=== PATIENT | female | born 1980 | race Caucasian/White ===

== ENCOUNTER 2022-04-17 14:14 | Emergency (ER) | payer OTHER ==
[~2022-04-17] VITALS: Ht 165.1 cm; Wt 133.8 kg
[2022-04-17 14:34] VITALS: BP 118/71
[2022-04-17] MEDS ORDERED: CEPH-588 PO (15:38)
[2022-04-17 16:10] VITALS: BP 118/71
--- NOTE | 2022-04-17 16:10 | NUR ---
Patient discharged with v/s stable. Written and verbal after care instructions given and explained. Patient alert, oriented and verbalized understanding of instructions. Ambulatory with steady gait. All questions addressed prior to discharge. ID band removed. Patient advised to follow up with PMD. Rx of keflex (sent) given. Patient educated on indication of medication including possible reaction and side effects. Opportunity to ask questions provided and answered. copy of work note given
== END 2022-04-17 16:10 | disposition home or self-care (01) ==
LOC: MED 14:14
DX: L98.8 Other specified disorders of the skin and subcutaneous tissue (principal); H92.02 Otalgia, left ear; Z79.2 Long term (current) use of antibiotics
CPT/HCPCS: 99283

== ENCOUNTER 2022-06-20 17:10 | Emergency (ER) | payer OTHER ==
[~2022-06-20] VITALS: Ht 165.1 cm; Wt 131.1 kg
[~2022-06-20 17:10] MED LIST: CEPH-588 PO
[2022-06-20 17:15] VITALS: BP 129/73
--- NOTE | 2022-06-20 17:15 | NUR ---
PT SENT TO LOBBY AT THIS TIME POST TRIAGE
[2022-06-20] MEDS ORDERED: IBUP-2213 PO (17:41)
[2022-06-20] MEDS ORDERED: CIPR7.5S OT (17:41)
[2022-06-20 17:55] VITALS: BP 129/73
--- NOTE | 2022-06-20 17:56 | NUR ---
Patient discharged with v/s stable. Written and verbal after care instructions given and explained. Patient alert, oriented and verbalized understanding of instructions. Ambulatory with steady gait. All questions addressed prior to discharge. ID band removed. Patient advised to follow up with PMD. Rx of IBUPROFEN, CIPROFLOXACIN (SENT) given. Patient educated on indication of medication including possible reaction and side effects. Opportunity to ask questions provided and answered.
== END 2022-06-20 17:56 | disposition home or self-care (01) ==
LOC: MED 17:10
DX: H60.92 Unspecified otitis externa, left ear (principal); J45.909 Unspecified asthma, uncomplicated; Z79.899 Other long term (current) drug therapy
CPT/HCPCS: 99283

== ENCOUNTER 2022-11-23 16:40 | Emergency (ER) | payer OTHER ==
[~2022-11-23] VITALS: Ht 162.6 cm; Wt 127.0 kg
[~2022-11-23 16:40] MED LIST changes: +CIPR7.5S OT; +IBUP-2213 PO
[2022-11-23 17:20] VITALS: BP 113/89; PULSE 112; RESP 16; TEMP 100.3; O2SAT 100
[2022-11-23] MEDS ORDERED: PHEN-1877 PO (17:53)
[2022-11-23] MEDS ORDERED: NITR100C7 PO (17:53)
== END 2022-11-23 17:56 | disposition home or self-care (01) ==
LOC: MED 16:40
DX: N39.0 Urinary tract infection, site not specified (principal); J45.909 Unspecified asthma, uncomplicated; Z98.890 Other specified postprocedural states; Z79.899 Other long term (current) drug therapy
CPT/HCPCS: 99283

== ENCOUNTER 2022-12-18 14:25 | Emergency (ER) | payer OTHER ==
[~2022-12-18 14:25] MED LIST changes: +NITR100C7 PO; +PHEN-1877 PO
== END 2022-12-18 14:56 | disposition left against medical advice (07) ==
LOC: MED 14:25
DX: Z53.21 Procedure and treatment not carried out due to patient leaving prior to being seen by health care provider (principal)

== ENCOUNTER 2023-02-16 18:23 | Emergency (ER) | payer OTHER ==
[~2023-02-16] VITALS: Ht 160 cm; Wt 119.3 kg
[2023-02-16 18:48] VITALS: BP 120/70; PULSE 97; RESP 18; TEMP 98.8; O2SAT 100
[2023-02-16 19:36] LABS: BILIRUBIN,URINE 1+ (NEGATIVE); BLOOD, URINE NEGATIVE (NEGATIVE); LEUKOCYTE ESTERASE ,URINE TRACE (NEGATIVE); NITRITE, URINE POSITIVE (NEGATIVE); PROTEIN,URINE 1+ (NEGATIVE); UGLUCOSE NEGATIVE (NEGATIVE); UROBILINOGEN,URINE 0.2 EU/dL (0.2 - 1)
[2023-02-16 19:46] LABS: APPEARANCE,URINE HAZY (CLEAR); COLOR,URINE YELLOW (YELLOW)
[2023-02-16 19:58] LABS: BACTERIA,URINE 2+ /HPF (None Seen); RBC,URINE NONE SEEN /HPF (0-5); SQUAMOUS EPITHELIAL CELL,UR 4-10 (MOD) /LPF (0-3 (FEW)); WBC,URINE 20-60 /HPF (0-5)
[2023-02-16] MEDS ORDERED: CIPR500T4 PO (20:15)
[2023-02-16] MEDS ORDERED: PHEN-1877 PO (20:15)
[2023-02-16 20:25] VITALS: BP 120/70; PULSE 97; RESP 18; TEMP 98.8; O2SAT 100
== END 2023-02-16 20:28 | disposition home or self-care (01) ==
LOC: MED 18:23
DX: N39.0 Urinary tract infection, site not specified (principal); F17.200 Nicotine dependence, unspecified, uncomplicated; Z98.890 Other specified postprocedural states; Z79.899 Other long term (current) drug therapy; Z79.1 Long term (current) use of non-steroidal anti-inflammatories (NSAID); Z79.2 Long term (current) use of antibiotics
CPT/HCPCS: 81001; 81025; 87086; 99283